=== PATIENT | male | born 1955 | race Caucasian/White ===

== ENCOUNTER 2022-10-27 16:16 | Emergency (ER) | payer MEDICARE, OTHER, SELFPAY ==
[2022-10-27 16:25] VITALS: BP 95/62; PULSE 58; RESP 16; TEMP 36.2; O2SAT 98
--- NOTE | 2022-10-27 16:32 | ED.URI ---
HPI - URI/Sore Throat General Chief Complaint: Upper Respiratory Infection Stated Complaint: bad cold Time Seen by Provider: 10/27/22 16:32 Source: patient, RN notes reviewed and old records reviewed Mode of arrival: ambulatory Limitations: no limitations History of Present Illness HPI Narrative: 66 year old male who presents to [facility] care with complaints of cold symptoms for 5-7 days reported which includes cough, some wheezing, expectoration of phelm, some sinus congestion and nasal drainage. Patient reports no known fevers, chills or sweats, no body aches or headaches. Patient reports that he does have history of A-fib takes Eliquis daily and history of CHF with no noted reported dyspnea or any peripheral edema noted. Patient reports that he has been using Vicks vapo rub, and Benadryl for his symptoms. MD elicited complaint: cough, rhinorrhea, nasal congestion and other (productive cough) Onset (ago): day(s) (5-7 days) Able to tolerate fluids by mouth: Yes Treatments prior to arrival: other (benadryl vicks vapor rub.) Related Data Home Medications Medication Instructions Recorded Confirmed allopurinol 300 mg tablet 300 mg PO DAILY 10/27/22 10/27/22 apixaban 5 mg tablet (Eliquis) 5 mg PO BID 10/27/22 10/27/22 carvedilol 6.25 mg tablet 6.25 mg PO DAILY 10/27/22 10/27/22 furosemide 40 mg tablet 40 mg PO DAILY 10/27/22 10/27/22 pravastatin 40 mg tablet 40 mg PO DAILY 10/27/22 10/27/22 spironolactone 25 mg tablet 25 mg PO DAILY 10/27/22 10/27/22 Allergies Allergy/AdvReac Type Severity Reaction Status Date / Time codeine Allergy Vomiting Verified 10/27/22 16:30 Review of Systems Review of Systems: CONSTITUTIONAL: Denies malaise, chills, sweats, or fever. EYES: Denies visual changes, redness, or discharge. ENT: Reports rhinorrhea, congestion, sinus pain,no otalgia or sore throat. CARDIOVASCULAR: Denies chest pain, palpitations, or edema. RESPIRATORY: Reports productive cough.? Denies dyspnea. GASTROINTESTINAL: Denies abdominal pain, nausea, vomiting, diarrhea SKIN: Denies rash or itching. MUSCULOSKELETAL: Denies myalgia. NEUROLOGIC: Denies headache. All systems reviewed & are unremarkable except as noted in HPI and below PMFSH Past Medical History Medical History (Updated 10/29/22 @ 14:29 by Teresa Haney NP) Chronic a-fib Congestive heart failure Elevated cholesterol Gout Hypertension Social History Social History (Updated 10/29/22 @ 14:31 by Teersa Haney NP) Smoking status: Former smoker Additional smoking assessment comments: quit over 30 years ago Alcohol intake: current Alcohol use details: rare social Substance use type: does not use Living arrangements: with family Gender identity (if verbalized by the patient): Male Comments At time of signature, agree with nursing past medical, surgical, social and family history. There is no relevant family history pertinent to the presenting complaint Exam Narrative: GENERAL: Well-appearing, well-nourished, and in no acute distress. HEAD: Normocephalic EYES: PERRLA, conjunctivae clear ENT: Nares clear, turbinates edematous and erythematous, clear discharge. Mucous membranes moist. TM pearly mosqueda with dull light reflex bilaterally; no tragal tenderness. Oropharynx erythematous without lesions. Tonsils not enlarged and without exudate, no drooling, no hoarseness, no trismus, uvula midline.post nasal drainage NECK: Supple. No lymphadenopathy CHEST:Scattered wheezes noted on auscultation, breath sounds equal.positive for wheezing,no rhonchi, rales, or stridor. No respiratory distress, speaks in full sentences, productive cough,SAO2 98% on room air HEART: Regular rate and rhythm. No murmur heard. SKIN: Warm, dry, no rash.no edema NEURO: Alert and oriented x3. PSYCH: Normal mood and affect Course Course Emergency Course: Patient is aware of diagnosis, understands and agrees to treatment plan.? Anticipatory
== END 2022-10-27 16:56 | disposition home or self-care (01) ==
PROVIDERS: Emergency Provider Registered Nurse
DX: J40 Bronchitis, not specified as acute or chronic (principal); Z87.891 Personal history of nicotine dependence; I48.91 Unspecified atrial fibrillation; I11.0 Hypertensive heart disease with heart failure; I50.9 Heart failure, unspecified; E78.00 Pure hypercholesterolemia, unspecified; M10.9 Gout, unspecified
CPT/HCPCS: 99213; G0463